=== PATIENT | female | born 1940 | race Caucasian/White ===

== ENCOUNTER → 2016-12-11 | Outpatient (CLI) | payer MEDICARE ==
[~2016-12-11] MED LIST: CYCL5TAB PO; HYDR-2768 PO; LABE100T2 PO; LIPI40TA PO; LOTE20TA PO; NAPR500 PO; PAXI10TA PO
[2016-12-11 13:14] LABS: HDL CHOLESTEROL 53.4 MG/DL (40.0-60.0); INDIRECT BILIRUBIN 0.4 MG/DL (0.0-0.8); TOTAL BILIRUBIN ADULT 0.5 MG/DL (0.2-1.0)
== END ==
LOC: PLAB 09:58
PROVIDERS: ATTEND Family Medicine
DX: E78.2 Mixed hyperlipidemia (principal); Z79.899 Other long term (current) drug therapy
CPT/HCPCS: 36415; 80061; 80076

== ENCOUNTER → 2017-11-09 | Outpatient (CLI) | payer MEDICARE ==
[2017-11-09 13:48] LABS: AUTOMATED NEUTROPHIL # 3.6 TH/MM3 (1.8-7.7); BASOPHIL % 0.4 % (0.0-2.0); EOSINOPHIL # 0.2 TH/MM3 (0-0.4); EOSINOPHIL % 3.5 % (0.0-4.0); HEMATOCRIT 36.8 % (35.0-46.0); HEMOGLOBIN 12.5 GM/DL (11.6-15.3); LYMPH % 28.4 % (9.0-44.0); LYMPHOCYTE # 1.6 TH/MM3 (1.0-4.8); MEAN CELL VOLUME 89.2 FL (80.0-100.0); MEAN CORPUSCULAR HEMOGLOBIN 30.1 PG (27.0-34.0); MEAN CORPUSCULAR HGB CONC 33.8 % (32.0-36.0); MEAN PLATELET VOLUME 8.2 FL (7.0-11.0); MONO % 6.3 % (0.0-8.0); MONOCYTE # 0.4 TH/MM3 (0-0.9); NEUT % 61.4 % (16.0-70.0); PLATELET COUNT 279 TH/MM3 (150-450); RED BLOOD COUNT 4.13 MIL/MM3 (4.00-5.30); RED CELL DISTRIBUTION WIDTH 14.1 % (11.6-17.2); WHITE BLOOD COUNT 5.8 TH/MM3 (4.0-11.0)
[2017-11-09 14:00] LABS: ALBUMIN 4.3 GM/DL (3.4-5.0); AST (GOT) 9 U/L (15-37); BICARBONATE 29.6 MEQ/L (21.0-32.0); BLOOD UREA NITROGEN 17 MG/DL (7-18); CALCIUM 9.2 MG/DL (8.5-10.1); CHLORIDE 103 MEQ/L (98-107); CHOLESTEROL 195 MG/DL (120-200); CREATININE 1.02 MG/DL (0.50-1.00); GLOMERULAR FILTRATION RATE 53 ML/MIN (>89); GLUCOSE,FASTING 98 MG/DL (74-99); SODIUM (NA) 139 MEQ/L (136-145)
[2017-11-09 14:07] LABS: ALKALINE PHOSPHATASE 166 U/L (45-117); ALT (GPT) 20 U/L (10-53); CHOLESTEROL/ HDL RATIO 3.91 RATIO; HDL CHOLESTEROL 49.8 MG/DL (40.0-60.0); LDL CHOLESTEROL 94 MG/DL (0-99); TOTAL BILIRUBIN ADULT 0.3 MG/DL (0.2-1.0); TOTAL PROTEIN 7.6 GM/DL (6.4-8.2); TRIGLYCERIDES 256 MG/DL (42-150)
== END ==
LOC: PLAB 09:27
PROVIDERS: ATTEND Family Medicine
DX: E78.2 Mixed hyperlipidemia (principal); I10 Essential (primary) hypertension; Z79.899 Other long term (current) drug therapy
CPT/HCPCS: 36415; 80053; 80061; 85025

== ENCOUNTER 2018-05-24 11:41 | Inpatient (IN) ==
[2018-05-24] MEDS ORDERED: Sod Chloride 0.9% Inj 1,000 ML IV.SIG ONE (12:02)
[2018-05-24 12:33] LABS: Baso % (Auto) 0.2 % (0.0-2.0); Eos % (Auto) 0.2 % (0.0-4.0); Hemoglobin 12.2 gm/dL (11.6-15.3); Lymph # (Auto) 0.7 th/mm3 (1.0-4.8); Lymph % (Auto) 6.9 % (9.0-44.0); Mean Corpuscular Hemoglobin 30.8 pg (27.0-34.0); Mean Corpuscular Volume 90.7 fL (80.0-100.0); Mean Platelet Volume 8.1 fL (7.0-11.0); Mono # (Auto) 0.8 th/mm3 (0.0-0.9); Mono % (Auto) 8.2 % (0.0-8.0); Neut # (Auto) 8.2 th/mm3 (1.8-7.7); Neut % (Auto) 84.5 % (16.0-70.0); Platelet Count 208 th/mm3 (150-450); Red Blood Count 3.97 mil/mm3 (4.00-5.30); Red Cell Distribution Width 13.3 % (11.6-17.2); White Blood Count 9.7 th/mm3 (4.0-11.0)
[2018-05-24 12:42] LABS: Bilirubin,Urine Negative (Negative); Chloride 97 meq/L (98-107); Color,Urine Yellow (Yellw/Straw); Glucose,Urine (UA) Negative (Negative); Ictotest,Urine Negative (Negative); Leukocyte Esterase,Urine Trace (Negative); Nitrite,Urine Negative (Negative); Potassium 3.2 meq/L (3.5-5.1); Sodium 133 meq/L (136-145)
--- NOTE | 2018-05-24 12:42 | XR ---
EXAM DATE: 05/24/2018 12:29 PM EDT AGE/SEX: 77 years / Female INDICATIONS: Headache, fever, back pain. CLINICAL DATA: This is the patient's initial encounter. Patient reports that signs and symptoms have been present for 2 days and indicates a pain score of 3/10. MEDICAL/SURGICAL HISTORY: None. None. COMPARISON: No prior exams available for comparison. FINDINGS: Cardiomegaly with moderate peribronchial thickening. Minimal parental changes right base. No consolid ation. No pleural effusion. The portion of the bony skeleton visualized is unremarkable. CONCLUSION: Cardiomegaly without failure Peribronchial thickening with minimal parenchymal changes right base Electronically signed by: Guicho Tracey MD 05/24/2018 12:41 PM EDT
[2018-05-24 12:43] LABS: Clarity,Urine Hazy (Clear)
[2018-05-24 12:46] LABS: Albumin 3.2 g/dL (3.4-5.0); Anion Gap 12 meq/L (5-15); Calcium 8.5 mg/dL (8.5-10.1); Carbon Dioxide 24.5 meq/L (21.0-32.0); Glucose,Random 119 mg/dL (74-106); Lipase 87 U/L (73-393); RBC,Urine 0-3 /hpf (0-3); Squamous Epithelial Cell,Urine 0-5 /hpf (0-5); WBC,Urine 0-5 /hpf (0-5)
[2018-05-24 12:47] LABS: Blood Urea Nitrogen 14 mg/dL (7-18); Prothrombin Time 10.1 sec (9.8-11.6)
[2018-05-24 12:49] LABS: Alanine Aminotransferase 24 U/L (10-53); Aspartate Aminotransferase 17 U/L (15-37); Glomerular Filtration Rate 48 mL/min (>89)
[2018-05-24 12:51] LABS: Total Protein 7.3 g/dL (6.4-8.2)
[2018-05-24 12:52] LABS: Alkaline Phosphatase 110 U/L (45-117)
[2018-05-24] MEDS ORDERED: Ibuprofen 600 MG Tablet PO STA (13:16)
--- NOTE | 2018-05-24 13:52 | CT ---
EXAM DATE: 05/24/2018 1:41 PM EDT AGE/SEX: 77 years / Female INDICATIONS: Headache and dizziness. CLINICAL DATA: This is the patient's initial encounter. Patient reports that signs and symptoms have been present for 1 day and indicates a pain score of 0/10. MEDICAL/SURGICAL HISTORY: Hypertension. Hypercholesterolemia. Hysterectomy. RADIATION DOSE: 57.00 CTDI (mGy) COMPARISON: No prior exams available for comparison. TECHNIQUE: CT of the head without contrast. Using automated exposure control and adjustment of the mA and/or kV according to patient size, radiation dose was kept as low as reasonably achievable to ob tain optimal diagnostic quality images. DICOM format image data is available electronically for revi ew and comparison. FINDINGS: Cerebrum: The ventricles are normal for age. No evidence of midline shift, mass lesion, hemorrhage or acute infarction. No extraaxial fluid collections are seen. Posterior Fossa: The cerebellum and brainstem are intact. The 4th ventricle is midline. The cerebe llopontine angle is unremarkable. Extracranial: The visualized portion of the orbits is intact. Skull: The calvaria is intact. No evidence of skull fracture. CONCLUSION: 1. Negative for acute process. . Electronically signed by: Guicho Tracey MD 05/24/2018 1:50 PM EDT
--- NOTE | 2018-05-24 14:05 | CT ---
EXAM DATE: 05/24/2018 1:41 PM EDT AGE/SEX: 77 years / Female INDICATIONS: Slight cough, headache, and fever. CLINICAL DATA: This is the patient's initial encounter. Patient reports that signs and symptoms have been present for 1 day and indicates a pain score of 0/10. MEDICAL/SURGICAL HISTORY: Hypertension. Hypercholesterolemia. Hysterectomy. RADIATION DOSE: 20.18 CTDI (mGy) COMPARISON: No prior exams available for comparison. TECHNIQUE: Multiple contiguous axial images were obtained through the chest without contrast. Image s were obtained in suspended respiration using multiple row detector helical technique. Using automa tabitha exposure control and adjustment of the mA and/or kV according to patient size, radiation dose was kept as low as reasonably achievable to obtain optimal diagnostic quality images. DICOM format imag e data is available electronically for review and comparison. FINDINGS: Lungs: Patchy subsegmental airspace disease is present throughout both lungs. Airspace disease is pr edominantly peribronchial in location. Pleural-based areas of consolidation are developing in the bas es especially on the right. Mediastinum: Mildly enlarged mediastinal lymph nodes ranging in size up to 1.1 x 1.8 cm in size are noted. Heart is normal in size. Pleurae: Trace pleural fluid and mild pleural thickening is evident. Axillae: Unremarkable. Bony Structures: Unremarkable. Miscellaneous: A 9 mm hypodensity is identified in the right hepatic lobe along the dome of the diap hragm. CONCLUSION: 1. Bilateral subsegmental airspace disease and basilar consolidation most characteristic of an infla mmatory process. 2. Mildly prominent mediastinal lymph nodes. 3. 9 mm hypodensity within the right hepatic lobe most characteristic of a cyst. Electronically signed by: Jeffrey Mccain MD 05/24/2018 2:04 PM EDT
[2018-05-24] MEDS ORDERED: Azithromycin Inj 500 MG in Sodium Chlor 0.9% Inj 250 ML IV.SIG ONE (14:14)
--- NOTE | 2018-05-24 14:29 | ED ---
HPI General Chief complaint: Fever Stated complaint: back pain/PIPER/fever History of Present Illness HPI narrative: 77 female here for evaluation of feverHis history of hypertension denies weakness. Fever started 2 days ago, T-max 102.9, went down with Tylenol, she has no cough, no UTI-like symptoms, and no she has or night sweats, no rashes. She reports one 2 episodes of severe headache that went away on its own. 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 Denies any trauma, no nausea or vomiting. Related Data Home Medications Medication Instructions Recorded Confirmed acetaminophen 1 tab PO BID 04/03/18 05/24/18 atorvastatin 40 mg PO DAILY 04/03/18 05/24/18 benazepril 20 mg PO BID 04/03/18 05/24/18 hydrochlorothiazide 25 mg PO DAILY 04/03/18 05/24/18 ibuprofen 800 mg PO DAILY 04/03/18 05/24/18 labetalol 100 mg PO BID 04/03/18 05/24/18 paroxetine HCl 10 mg PO DAILY 04/03/18 05/24/18 Allergies Allergy/AdvReac Type Severity Reaction Status Date / Time Sulfa (Sulfonamide Allergy Severe HIVES Verified 05/24/18 13:16 Antibiotics) SULFIDES Allergy Severe HIVES Uncoded 05/24/18 13:16 Review of Systems ROS: all other systems reviewed are negative [facility] Medical History Medical History H/O: hysterectomy (Acute) High cholesterol (Acute) Hypertension (Acute) Macular degeneration (Acute) Post-nasal drip (Acute) Sciatica (Acute) Family History Family History Other CHF (congestive heart failure) Diabetes Social History Social History Substance History: No History of Abuse Second Hand Smoke Exposure: No Smoking Status: Former smoker Tobacco Type: Cigarettes How Often Do You Have a Drink Containing Alcohol: Never Recent Travel in [place] within the Last 8 Weeks: No Recent Out of Country Travel within the Last 8 Weeks: No Immunization History Tetanus Immunization: <5 Years Hx Influenza Vaccine This Season: Yes Exam Narrative Exam Narrative: GENERAL: Alert oriented 3 no acute distress. SKIN: Focused skin assessment warm/dry. HEAD: Atraumatic. Normocephalic. EYES: Pupils equal and round. No scleral icterus. No injection or drainage. ENT: No nasal bleeding or discharge. Mucous membranes pink and moist. NECK: Trachea midline. No JVD. CARDIOVASCULAR: Regular rate and rhythm. No murmur appreciated. RESPIRATORY: No accessory muscle use. Clear to auscultation. Breath sounds equal bilaterally. GASTROINTESTINAL: Abdomen soft, non-tender, nondistended. Hepatic and splenic margins not palpable. MUSCULOSKELETAL: No obvious deformities. No clubbing. No cyanosis. No edema. NEUROLOGICAL: Awake and alert. No obvious cranial nerve deficits. Motor grossly within normal limits. Normal speech. PSYCHIATRIC: Appropriate mood and affect; insight and judgment normal. Course Initial Documented Vital Signs Temperature 102.8 F H 05/24/18 11:44 Pulse Rate 102 H 05/24/18 11:44 Respiratory Rate 18 05/24/18 11:44 Blood Pressure 150/78 H 05/24/18 11:44 Pulse Oximetry 97 05/24/18 11:44 Last Documented Vital Signs Temperature 97.7 F 05/25/18 11:17 Pulse Rate 74 05/25/18 11:17 Respiratory Rate 20 05/25/18 11:17 Blood Pressure 165/69 H 05/25/18 11:17 Pulse Oximetry 93 L 05/25/18 11:17 Medical Decision Making [facility] Narrative Medical decision making narrative: 77 female with a history of hypertension here for evaluation of fever, vitals reviewed remarkable for elevated temperature, tachycardia which is concerning for early sepsis/SIRS, patient labs were drawn, blood cultures, lactic acid is 1.2, white blood cells are unremarkable. CAT scan shows right lower lobe consolidation/infiltrate which could be the source of the fever. Patient has hypoxia year and we had to put her on 2 L nasal cannula. Patient would benefit from admission for pneumonia and hypoxia, started her on Rocephin/azithromycin and I spoke with Dr. Maza who accepted the patient and gave his recommendations. Medical Screen Exam Complete: Yes Emergency Medical Condition: Yes Lab Data Result diagrams: 05/25/18 05:22 05/25/18 05:22 Lab Results 05/24/18 05/24/18 05/24/18 Range/Units 12:20 12:20 12:20 CBC w Diff Auto diff final WBC 9.7 (4.0-11.0) th/mm3 RBC 3.97 L (4.00-5.30) mil/mm3 Hgb 12.2 (11.6-15.3) gm/dL Hct 36.0 (35.0-46.0) % MCV 90.7 (80.0-100.0) fL MCH 30.8 (27.0-34.0) pg MCHC 34.0 (32.0-36.0) % RDW 13.3 (11.6-17.2) % Plt Count 208 (150-450) th/mm3 MPV 8.1 (7.0-11.0) fL Neut % (Auto) 84.5 H (16.0-70.0) % Lymph % (Auto) 6.9 L (9.0-44.0) % [place] % (Auto) 8.2 H (0.0-8.0) % Eos % (Auto) 0.2 (0.0-4.0) % Baso % (Auto) 0.2 (0.0-2.0) % Neut # (Auto) 8.2 H (1.8-7.7) th/mm3 Lymph # (Auto) 0.7 L (1.0-4.8) th/mm3 [place] # (Auto) 0.8 (0.0-0.9) th/mm3 Eos # (Auto) 0.0 (0.0-0.4) th/mm3 Baso # (Auto) 0.0 (0.0-0.2) th/mm3 WBC Differential . Differential Comment . PT 10.1 (9.8-11.6) sec INR 1.0 Ratio Sodium 133 L (136-145) meq/L Potassium 3.2 L (3.5-5.1) meq/L Chloride 97 L (98-107) meq/L Carbon Dioxide 24.5 (21.0-32.0) meq/L Anion Gap 12 (5-15) meq/L BUN 14 (7-18) mg/dL Creatinine 1.10 H (0.50-1.00) mg/dL Estimated GFR 48 L (>89) mL/min Random Glucose 119 H (74-106) mg/dL Lactic Acid (0.4-2.0) mmol/L Calcium 8.5 (8.5-10.1) mg/dL Total Bilirubin 0.4 (0.2-1.0) mg/dL AST 17 (15-37) U/L ALT 24 (10-53) U/L Alkaline Phosphatase 110 (45-117) U/L Troponin I Less than 0.02 L (0.02-0.05) ng/mL Total Protein 7.3 (6.4-8.2) g/dL Albumin 3.2 L (3.4-5.0) g/dL Lipase 87 (73-393) U/L Urine Color (Yellw/Straw) Urine Clarity (Clear) Urine pH (5.0-8.5) Ur Specific [place] (1.002-1.035) Urine Protein (Neg-Trace) mg/dL Urine Glucose (UA) (Negative) mg/dL Urine Ketones (Negative) mg/dL Urine Occult Blood (Negative) Urine Nitrate (Negative) Urine Bilirubin (Negative) Urine Ictotest (Negative) Urine Urobilinogen (Less than 2) mg/dL Ur Leukocyte Esterase (Negative) Urine RBC (0-3) /hpf Urine WBC (0-5) /hpf Ur Squamous Epith Cells (0-5) /hpf Micro UA Comment Ur Microscopic Review Urine Culture Comments 05/24/18 05/24/18 05/25/18 Range/Units 12:20 12:20 05:22 CBC w Diff Auto diff final WBC 9.8 (4.0-11.0) th/mm3 RBC 3.56 L (4.00-5.30) mil/mm3 Hgb 10.9 L (11.6-15.3) gm/dL Hct 32.5 L (35.0-46.0) % MCV 91.3 (80.0-100.0) fL MCH 30.5 (27.0-34.0) pg MCHC 33.4 (32.0-36.0) % RDW 13.9 (11.6-17.2) % Plt Count 213 (150-450) th/mm3 MPV 8.5 (7.0-11.0) fL Neut % (Auto) 78.9 H (16.0-70.0) % Lymph % (Auto) 11.1 (9.0-44.0) % [place] % (Auto) 9.7 H (0.0-8.0) % Eos % (Auto) 0.2 (0.0-4.0) % Baso % (Auto) 0.1 (0.0-2.0) % Neut # (Auto) 7.7 (1.8-7.7) th/mm3 Lymph # (Auto) 1.1 (1.0-4.8) th/mm3 [place] # (Auto) 1.0 H (0.0-0.9) th/mm3 Eos # (Auto) 0.0 (0.0-0.4) th/mm3 Baso # (Auto) 0.0 (0.0-0.2) th/mm3 WBC Differential . Differential Comment . PT (9.8-11.6) sec INR Ratio Sodium (136-145) meq/L Potassium (3.5-5.1) meq/L Chloride (98-107) meq/L Carbon Dioxide (21.0-32.0) meq/L Anion Gap (5-15) meq/L BUN (7-18) mg/dL Creatinine (0.50-1.00) mg/dL Estimated GFR (>89) mL/min Random Glucose (74-106) mg/dL Lactic Acid 1.2 (0.4-2.0) mmol/L Calcium (8.5-10.1) mg/dL Total Bilirubin (0.2-1.0) mg/dL AST (15-37) U/L ALT (10-53) U/L Alkaline Phosphatase (45-117) U/L Troponin I (0.02-0.05) ng/mL Total Protein (6.4-8.2) g/dL Albumin (3.4-5.0) g/dL Lipase (73-393) U/L Urine Color Yellow (Yellw/Straw) Urine Clarity Hazy H (Clear) Urine pH 6.0 (5.0-8.5) Ur Specific [place] 1.020 (1.002-1.035) Urine Protein 100 H (Neg-Trace) mg/dL Urine Glucose (UA) Negative (Negative) mg/dL Urine Ketones Trace H (Negative) mg/dL Urine Occult Blood Small H (Negative) Urine Nitrate Negative (Negative) Urine Bilirubin Negative (Negative) Urine Ictotest Negative (Negative) Urine Urobilinogen 1.0 (Less than 2) mg/dL Ur Leukocyte Esterase Trace H (Negative) Urine RBC 0-3 (0-3) /hpf Urine WBC 0-5 (0-5) /hpf Ur Squamous Epith Cells 0-5 (0-5) /hpf Micro UA Comment Culture not ind Ur Microscopic Review Microscopic reviewed Urine Culture Comments Culture not ind 05/25/18 Range/Units 05:22 CBC w Diff WBC (4.0-11.0) th/mm3 RBC (4.00-5.30) mil/mm3 Hgb (11.6-15.3) gm/dL Hct (35.0-46.0) % MCV (80.0-100.0) fL MCH (27.0-34.0) pg MCHC (32.0-36.0) % RDW (11.6-17.2) % Plt Count (150-450) th/mm3 MPV (7.0-11.0) fL Neut % (Auto) (16.0-70.0) % Lymph % (Auto) (9.0-44.0) % [place] % (Auto) (0.0-8.0) % Eos % (Auto) (0.0-4.0) % Baso % (Auto) (0.0-2.0) % Neut # (Auto) (1.8-7.7) th/mm3 Lymph # (Auto) (1.0-4.8) th/mm3 [place] # (Auto) (0.0-0.9) th/mm3 Eos # (Auto) (0.0-0.4) th/mm3 Baso # (Auto) (0.0-0.2) th/mm3 WBC Differential Differential Comment PT (9.8-11.6) sec INR Ratio Sodium 139 (136-145) meq/L Potassium 3.6 (3.5-5.1) meq/L Chloride 106 D (98-107) meq/L Carbon Dioxide 23.2 (21.0-32.0) meq/L Anion Gap 10 (5-15) meq/L BUN 14 (7-18) mg/dL Creatinine 0.88 (0.50-1.00) mg/dL Estimated GFR 63 L (>89) mL/min Random Glucose 106 (74-106) mg/dL Lactic Acid (0.4-2.0) mmol/L Calcium 8.4 L (8.5-10.1) mg/dL Total Bilirubin 0.3 (0.2-1.0) mg/dL AST 13 L (15-37) U/L ALT 19 (10-53) U/L Alkaline Phosphatase 97 (45-117) U/L Troponin I (0.02-0.05) ng/mL Total Protein 6.4 D (6.4-8.2) g/dL Albumin 2.7 L (3.4-5.0) g/dL Lipase (73-393) U/L Urine Color (Yellw/Straw) Urine Clarity (Clear) Urine pH (5.0-8.5) Ur Specific [place] (1.002-1.035) Urine Protein (Neg-Trace) mg/dL Urine Glucose (UA) (Negative) mg/dL Urine Ketones (Negative) mg/dL Urine Occult Blood (Negative) Urine Nitrate (Negative) Urine Bilirubin (Negative) Urine Ictotest (Negative) Urine Urobilinogen (Less than 2) mg/dL Ur Leukocyte Esterase (Negative) Urine RBC (0-3) /hpf Urine WBC (0-5) /hpf Ur Squamous Epith Cells (0-5) /hpf Micro UA Comment Ur Microscopic Review Urine Culture Comments Imaging Data Radiologist's impression: Chest X-Ray 05/24/18 12:02 CONCLUSION: Cardiomegaly without failure Peribronchial thickening with minimal parenchymal changes right base Chest CT 05/24/18 13:16 CONCLUSION: 1. Bilateral subsegmental airspace disease and basilar consolidation most characteristic of an inflammatory process. 2. Mildly prominent mediastinal lymph nodes. 3. 9 mm hypodensity within the right hepatic lobe most characteristic of a cyst. Head CT 05/24/18 13:22 CONCLUSION: 1. Negative for acute process. . Discharge Plan Discharge Disposition Patient Disposition: 30 Still Patient Discharge Condition Condition: Stable Discharge Details Diagnosis: Community acquired pneumonia Physicians Team ED Provider: Jorge Hensley Primary Care Provider: Primary Care Estella Ariza Attending Provider: Go Hidalgo Status ED Status: Left Department Discharge Information Discharge Date/Time: 05/24/18 14:55
--- NOTE | 2018-05-24 15:08 | P.HPIM ---
History of Present Illness Primary Care Physician: No Primary Care Physician Chief Complaint: Headache History of Present Illness: The patient is a 77-year-old female with a past medical history of hypertension who is presenting to the hospital with headache and sweats and chills. The patient states she has been having fevers at home as well as alternating between sweats and chills. She has had severe symptoms over the past 3 days which have essentially rendered her bed bound. She has been coughing and when she coughs she experiences chest pain at times. She denies any mucus production. She says she had minor diarrhea on one of the days but that has resolved. She denies any shortness of breath. She does endorse chronic postnasal drip. She has been endorsing dizziness lately. She has a generalized sensation of weakness. She has been sweating a lot. Her step- daughter was at the bedside. Inpatient Certification: I certify that the inpatient services were ordered in accordance with Medicare regulations governing the order. This includes certification that hospital inpatient services are reasonable and necessary and in the case of services not specified as inpatient-only under 42 CFR 419.22(n), that they are appropriately provided as inpatient services in accordance to with the 2-midnight benchmark under 43 CFR 412.3(e) Estimated Total Length of Stay (Days): 2 Plans for Post Hospital Care: Not yet determined Review of Systems All other systems reviewed negative except as stated in HPI [facility] - History History Provided By: Patient - Medical History Medical History: Medical History (Last Updated 05/24/18 @ 15:06 by Go Hidalgo DO) H/O: hysterectomy High cholesterol Hypertension Macular degeneration Post-nasal drip Sciatica - Surgical History Surgical History: Surgical History (Last Updated 05/24/18 @ 15:07 by Go Hidalgo DO) Hx of cholecystectomy - Family History Family History: Family History (Last Updated 05/24/18 @ 15:07 by Go Hidalgo DO) Other CHF (congestive heart failure) Diabetes - Tobacco History Second Hand Smoke Exposure: No Smoking Status: Former smoker - Alcohol History How Often Do You Have a Drink Containing Alcohol: Never - Substance Use History Substance History: No History of Abuse - Travel History Recent Travel in the [place] Within the Last 8 Weeks: No Recent Travel Out of the Country Within the Last 8 Weeks: No - Immunization History Tetanus Immunization: <5 Years Hx Influenza Vaccine This Season: Yes Medications and Allergies Active Medications: Active Medications Acetaminophen (Tylenol) 650 mg PO Q4H PRN PRN Reason: Temp > 100.4 Atorvastatin Calcium (Lipitor) 40 mg PO HS DAIMON Azithromycin 500 mg/ Sodium (Chloride) 250 mls @ 250 mls/hr IV.SIG ONCE ONE Stop: 05/24/18 15:13 Azithromycin 500 mg/ Sodium (Chloride) 250 mls @ 250 mls/hr IV.SIG Q24H DAMION Ceftriaxone Sodium 1,000 mg/ (Sodium Chloride) 100 mls @ 200 mls/hr IV.SIG Q24H DAMION Sodium Chloride (Ns Inj) 1,000 mls @ 100 mls/hr IV.CONT .Q10H DAMION Labetalol HCl (Trandate) 100 mg PO BID DAMION Paroxetine HCl (Paxil) 10 mg PO HS DAMION Potassium Chloride (K-Dur) 40 meq PO Q4H DAMION Stop: 05/24/18 19:01 Allergies Allergy/AdvReac Type Severity Reaction Status Date / Time Sulfa (Sulfonamide Allergy Severe HIVES Verified 05/24/18 13:16 Antibiotics) SULFIDES Allergy Severe HIVES Uncoded 05/24/18 13:16 Home Medications Medication Instructions Recorded Confirmed Type acetaminophen 1 tab PO BID 04/03/18 05/24/18 History atorvastatin 40 mg PO DAILY 04/03/18 05/24/18 History benazepril 20 mg PO BID 04/03/18 05/24/18 History hydrochlorothiazide 25 mg PO DAILY 04/03/18 05/24/18 History ibuprofen 800 mg PO DAILY 04/03/18 05/24/18 History labetalol 100 mg PO BID 04/03/18 05/24/18 History paroxetine HCl 10 mg PO DAILY 04/03/18 05/24/18 History Exam Vital signs: Vital Signs 05/24/18 11:44 05/24/18 12:28 Temperature 102.8 F H Pulse Rate 102 H 99 H Respiratory Rate 18 20 Blood Pressure 150/78 H 147/86 H Pulse Oximetry 97 92 L Intake & Output 05/23/18 05/24/18 05/24/18 18:59 06:59 18:59 Intake Total 1000 / 1000 Balance 1000 / 1000 Weight 77 kg Intake: IV 1000 / 1000 NS Inj 1,000 ML @ Wide Open IV. 1000 / 1000 SIG BOLUS ONE Rx#:[id number] Narrative: GENERAL: No acute distress. SKIN: Focused skin assessment warm/dry. HEAD: Atraumatic. Normocephalic. EYES: Pupils equal and round. No scleral icterus. No injection or drainage. ENT: No nasal bleeding or discharge. Mucous membranes pink and moist. NECK: Trachea midline. No JVD. CARDIOVASCULAR: Regular rate and rhythm. No murmur appreciated. RESPIRATORY: No accessory muscle use. Clear to auscultation. Breath sounds equal bilaterally. GASTROINTESTINAL: Abdomen soft, non-tender, nondistended. Hepatic and splenic margins not palpable. MUSCULOSKELETAL: No obvious deformities. No clubbing. No cyanosis. No edema. NEUROLOGICAL: Awake and alert. No obvious cranial nerve deficits. Motor grossly within normal limits. Normal speech. PSYCHIATRIC: Appropriate mood and affect; insight and judgment normal. Results - Labs CBC & Chem 7: 05/24/18 12:20 05/24/18 12:20 Labs: Short CBC 05/24/18 Range/Units 12:20 WBC 9.7 (4.0-11.0) th/mm3 Hgb 12.2 (11.6-15.3) gm/dL Hct 36.0 (35.0-46.0) % Plt Count 208 (150-450) th/mm3 BMP 05/24/18 12:20 Sodium 133 L Potassium 3.2 L Chloride 97 L Carbon Dioxide 24.5 BUN 14 Creatinine 1.10 H Calcium 8.5 Cardiac Enzymes 05/24/18 Range/Units 12:20 Troponin I Less than 0.02 L (0.02-0.05) ng/mL Liver Function 05/24/18 Range/Units 12:20 Total Bilirubin 0.4 (0.2-1.0) mg/dL AST 17 (15-37) U/L ALT 24 (10-53) U/L Alkaline Phosphatase 110 (45-117) U/L Albumin 3.2 L (3.4-5.0) g/dL Urine 05/24/18 Range/Units 12:20 Urine Color Yellow (Yellw/Straw) Urine Clarity Hazy H (Clear) Urine pH 6.0 (5.0-8.5) Ur Specific [place] 1.020 (1.002-1.035) Urine Protein 100 H (Neg-Trace) mg/dL Urine Glucose (UA) Negative (Negative) mg/dL - Imaging Impressions Chest X-Ray 05/24/18 12:02 CONCLUSION: Cardiomegaly without failure Peribronchial thickening with minimal parenchymal changes right base Chest CT 05/24/18 13:16 CONCLUSION: 1. Bilateral subsegmental airspace disease and basilar consolidation most characteristic of an inflammatory process. 2. Mildly prominent mediastinal lymph nodes. 3. 9 mm hypodensity within the right hepatic lobe most characteristic of a cyst. Head CT 05/24/18 13:22 CONCLUSION: 1. Negative for acute process. . Caprini VTE Risk Assessment Caprini VTE Risk Assessment: Moderate/High Risk (score >= 2) Caprini Risk Assessment Model: Point Value = 1 Point Value = 2 Point Value = 3 Point Value = 5 Age 41-60 Minor surgery BMI > 25 kg/m2 Swollen legs Varicose veins or History of unexplained or recurrent spontaneous Oral contraceptives or hormone replacement Sepsis (< 1 month) Serious lung disease, including pneumonia (< 1 month) Abnormal pulmonary function Acute myocardial infarction Congestive heart failure (< 1 month) History of inflammatory bowel disease Medical patient at bed rest Age 61-74 Arthroscopic surgery Major open surgery (> 45 min) Laparoscopic surgery (> 45 min) Malignancy Confined to bed (> 72 hours) Immobilizing plaster cast Central venous access Age >= 75 History of VTE Family history of VTE Factor V Leiden Prothrombin [id number] Lupus anticoagulant Anticardiolipin antibodies Elevated serum homocysteine Heparin-induced thrombocytopenia Other congenital or acquired thrombophilia Stroke (< 1 month) Elective arthroplasty Hip, pelvis, or leg fracture Acute spinal cord injury (< 1 month) Prophylaxis Regimen: Total Risk Factor Score Risk Level Prophylaxis Regimen 0-1 Low Early ambulation 2 Moderate Order ONE of the following: *Sequential Compression Device (SCD) *Heparin 5000 units SQ BID 3-4 Higher Order ONE of the following medications: *Heparin 5000 units SQ TID *Enoxaparin/Lovenox 40 mg SQ daily (WT < 150 kg, CrCl > 30 mL/min) *Enoxaparin/Lovenox 30 mg SQ daily (WT < 150 kg, CrCl > 10-29 mL/min) *Enoxaparin/Lovenox 30 mg SQ BID (WT < 150 kg, CrCl > 30 mL/min) AND/OR *Sequential Compression Device (SCD) 5 or more Highest Order ONE of the following medications: *Heparin 5000 units SQ TID (Preferred with Epidurals) *Enoxaparin/Lovenox 40 mg SQ daily (WT < 150 kg, CrCl > 30 mL/min) *Enoxaparin/Lovenox 30 mg SQ daily (WT < 150 kg, CrCl > 10-29 mL/min) *Enoxaparin/Lovenox 30 mg SQ BID (WT < 150 kg, CrCl > 30 mL/min) AND *Sequential Compression Device (SCD) Assessment and Plan - Plan Community-acquired pneumonia/ Sepsis The pt presents with fevers and chills. She had an elevated HR. CT of the chest showed: Bilateral subsegmental airspace disease and basilar consolidation most characteristic of an inflammatory process. -IV ceftriaxone and azithromycin. -follow blood cultures. -IVFs. -oxygen and nebs as needed. -incentive spirometry. -physical therapy. Headache CT head unremarkable. Likely s/t above process. -ibuprofen as needed. Renal insufficiency May be s/t home meds. -hold HCTZ and ACEi. -IVFs. -avoid nephrotoxins. Hypokalemia Likely s/t decreased PO intake. -replete and monitor. HTN On labetalol, HCTZ and ACEi as an outpt. -hold HCTZ and ACEi. -continue labetalol. -clonidine as needed. PPx: SCDs
[2018-05-24] MEDS: Sod Chloride 0.9% Inj 1,000 ML IV.CONT SCH (15:23)
[2018-05-24] MEDS ORDERED: Ibuprofen 600 MG Tablet PO PRN (19:00)
[2018-05-24] MEDS: Labetalol 100 MG Tablet PO SCH (21:52)
[2018-05-24] MEDS: Acetaminophen 325 MG Tablet PO PRN (21:52)
[2018-05-25] MEDS: Sod Chloride 0.9% Inj 1,000 ML IV.CONT SCH (04:42)
[2018-05-25 06:37] LABS: Baso % (Auto) 0.1 % (0.0-2.0); Eos % (Auto) 0.2 % (0.0-4.0); Hematocrit 32.5 % (35.0-46.0); Hemoglobin 10.9 gm/dL (11.6-15.3); Lymph # (Auto) 1.1 th/mm3 (1.0-4.8); Lymph % (Auto) 11.1 % (9.0-44.0); Mean Corpuscular HGB Conc 33.4 % (32.0-36.0); Mean Corpuscular Hemoglobin 30.5 pg (27.0-34.0); Mean Corpuscular Volume 91.3 fL (80.0-100.0); Mean Platelet Volume 8.5 fL (7.0-11.0); Mono % (Auto) 9.7 % (0.0-8.0); Neut # (Auto) 7.7 th/mm3 (1.8-7.7); Neut % (Auto) 78.9 % (16.0-70.0); Platelet Count 213 th/mm3 (150-450); Red Blood Count 3.56 mil/mm3 (4.00-5.30); Red Cell Distribution Width 13.9 % (11.6-17.2); White Blood Count 9.8 th/mm3 (4.0-11.0)
[2018-05-25 07:12] LABS: Alanine Aminotransferase 19 U/L (10-53); Albumin 2.7 g/dL (3.4-5.0); Alkaline Phosphatase 97 U/L (45-117); Anion Gap 10 meq/L (5-15); Aspartate Aminotransferase 13 U/L (15-37); Blood Urea Nitrogen 14 mg/dL (7-18); Calcium 8.4 mg/dL (8.5-10.1); Carbon Dioxide 23.2 meq/L (21.0-32.0); Chloride 106 meq/L (98-107); Glomerular Filtration Rate 63 mL/min (>89); Glucose,Random 106 mg/dL (74-106); Potassium 3.6 meq/L (3.5-5.1); Sodium 139 meq/L (136-145); Total Protein 6.4 g/dL (6.4-8.2)
[2018-05-25] MEDS: Labetalol 100 MG Tablet PO SCH ×2 (08:41→21:44)
[2018-05-25] MEDS: Acetaminophen 325 MG Tablet PO PRN (08:41)
--- NOTE | 2018-05-25 09:24 | P.PNIM ---
Subjective Interval history: The patient asked if she could be on her home regimen of ibuprofen and Tylenol. She said sitting in the chair was not good for her chronic back pain and neither was laying in the bed. She said she worked with physical therapy. She says her headache is improved. Family at the bedside. Physical Exam Vital signs: Vital Signs 05/24/18 11:44 05/24/18 12:28 05/24/18 12:40 Temperature 102.8 F H Pulse Rate 102 H 99 H Respiratory Rate 18 20 Blood Pressure 150/78 H 147/86 H Pulse Oximetry 97 92 L 90 L 05/24/18 12:45 05/24/18 13:15 05/24/18 15:11 Temperature 100.8 F H 99.5 F Pulse Rate 92 H Respiratory Rate 20 Blood Pressure 147/75 H Pulse Oximetry 95 95 05/24/18 16:00 05/24/18 17:21 05/24/18 19:50 Temperature 99.1 F Pulse Rate 88 Respiratory Rate 18 Blood Pressure 139/86 Pulse Oximetry 95 98 97 05/24/18 20:00 05/24/18 21:39 05/24/18 22:45 Temperature 98.7 F 102.4 F H 101.7 F H Pulse Rate 86 Respiratory Rate 20 Blood Pressure 143/66 H Pulse Oximetry 93 L 05/24/18 23:45 05/25/18 04:00 05/25/18 07:43 Temperature 99.4 F 99.8 F H 100.9 F H Pulse Rate 97 H 102 H Respiratory Rate 20 20 Blood Pressure 145/70 H 163/75 H Pulse Oximetry 95 93 L 05/25/18 07:58 Temperature Pulse Rate Respiratory Rate Blood Pressure Pulse Oximetry 92 L Intake & Output 05/24/18 05/25/18 05/25/18 18:59 06:59 18:59 Intake Total 1830 / 1830 1240 / 1240 Balance 1830 / 1830 1240 / 1240 Weight 77 kg 85.8 kg Intake: IV 1350 / 1350 1000 / 1000 NS Inj 1,000 ML @ 100 mls/hr IV 1000 / 1000 .CONT .Q10H [facility] Rx#:[id number] Azithromycin Inj 500 MG In NS 250 / 250 Inj 250 ML @ 250 mls/hr IV.SIG ONCE ONE Rx#:[id number] NS Inj 1,000 ML @ Wide Open IV. 1000 / 1000 SIG BOLUS ONE Rx#:[id number] Rocephin Inj 2,000 MG In NS Inj 100 / 100 100 ML @ 200 mls/hr IV.SIG ONCE ONE Rx#:[id number] Oral 480 / 480 240 / 240 Other: # Voids 0 5 # Bowel Movements 0 Weight On Admission 77 kg Narrative: GENERAL: No acute distress. SKIN: Focused skin assessment warm/dry. HEAD: Atraumatic. Normocephalic. EYES: Pupils equal and round. No scleral icterus. No injection or drainage. ENT: No nasal bleeding or discharge. Mucous membranes pink and moist. NECK: Trachea midline. No JVD. CARDIOVASCULAR: Regular rate and rhythm. No murmur appreciated. RESPIRATORY: No accessory muscle use. Clear to auscultation. Breath sounds equal bilaterally. GASTROINTESTINAL: Abdomen soft, non-tender, nondistended. Hepatic and splenic margins not palpable. MUSCULOSKELETAL: No obvious deformities. No clubbing. No cyanosis. No edema. NEUROLOGICAL: Awake and alert. No obvious cranial nerve deficits. Motor grossly within normal limits. Normal speech. PSYCHIATRIC: Appropriate mood and affect; insight and judgment normal. Results - Labs CBC & Chem 7: 05/25/18 05:22 05/25/18 05:22 Laboratory Results - last 24 hr 05/24/18 05/24/18 05/24/18 12:20 12:20 12:20 CBC w Diff Auto diff final WBC 9.7 RBC 3.97 L Hgb 12.2 Hct 36.0 MCV 90.7 MCH 30.8 MCHC 34.0 RDW 13.3 Plt Count 208 MPV 8.1 Neut % (Auto) 84.5 H Lymph % (Auto) 6.9 L [place] % (Auto) 8.2 H Eos % (Auto) 0.2 Baso % (Auto) 0.2 Neut # (Auto) 8.2 H Lymph # (Auto) 0.7 L [place] # (Auto) 0.8 Eos # (Auto) 0.0 Baso # (Auto) 0.0 WBC Differential . Differential Comment . PT 10.1 INR 1.0 Sodium 133 L Potassium 3.2 L Chloride 97 L Carbon Dioxide 24.5 Anion Gap 12 BUN 14 Creatinine 1.10 H Estimated GFR 48 L Random Glucose 119 H Lactic Acid Calcium 8.5 Total Bilirubin 0.4 AST 17 ALT 24 Alkaline Phosphatase 110 Troponin I Less than 0.02 L Total Protein 7.3 Albumin 3.2 L Lipase 87 Urine Color Urine Clarity Urine pH Ur Specific [place] Urine Protein Urine Glucose (UA) Urine Ketones Urine Occult Blood Urine Nitrate Urine Bilirubin Urine Ictotest Urine Urobilinogen Ur Leukocyte Esterase Urine RBC Urine WBC Ur Squamous Epith Cells Micro UA Comment Ur Microscopic Review Urine Culture Comments 05/24/18 05/24/18 05/25/18 12:20 12:20 05:22 CBC w Diff Auto diff final WBC 9.8 RBC 3.56 L Hgb 10.9 L Hct 32.5 L MCV 91.3 MCH 30.5 MCHC 33.4 RDW 13.9 Plt Count 213 MPV 8.5 Neut % (Auto) 78.9 H Lymph % (Auto) 11.1 [place] % (Auto) 9.7 H Eos % (Auto) 0.2 Baso % (Auto) 0.1 Neut # (Auto) 7.7 Lymph # (Auto) 1.1 [place] # (Auto) 1.0 H Eos # (Auto) 0.0 Baso # (Auto) 0.0 WBC Differential . Differential Comment . PT INR Sodium Potassium Chloride Carbon Dioxide Anion Gap BUN Creatinine Estimated GFR Random Glucose Lactic Acid 1.2 Calcium Total Bilirubin AST ALT Alkaline Phosphatase Troponin I Total Protein Albumin Lipase Urine Color Yellow Urine Clarity Hazy H Urine pH 6.0 Ur Specific [place] 1.020 Urine Protein 100 H Urine Glucose (UA) Negative Urine Ketones Trace H Urine Occult Blood Small H Urine Nitrate Negative Urine Bilirubin Negative Urine Ictotest Negative Urine Urobilinogen 1.0 Ur Leukocyte Esterase Trace H Urine RBC 0-3 Urine WBC 0-5 Ur Squamous Epith Cells 0-5 Micro UA Comment Culture not ind Ur Microscopic Review Microscopic reviewed Urine Culture Comments Culture not ind 05/25/18 05:22 CBC w Diff WBC RBC Hgb Hct MCV MCH MCHC RDW Plt Count MPV Neut % (Auto) Lymph % (Auto) [place] % (Auto) Eos % (Auto) Baso % (Auto) Neut # (Auto) Lymph # (Auto) [place] # (Auto) Eos # (Auto) Baso # (Auto) WBC Differential Differential Comment PT INR Sodium 139 Potassium 3.6 Chloride 106 D Carbon Dioxide 23.2 Anion Gap 10 BUN 14 Creatinine 0.88 Estimated GFR 63 L Random Glucose 106 Lactic Acid Calcium 8.4 L Total Bilirubin 0.3 AST 13 L ALT 19 Alkaline Phosphatase 97 Troponin I Total Protein 6.4 D Albumin 2.7 L Lipase Urine Color Urine Clarity Urine pH Ur Specific [place] Urine Protein Urine Glucose (UA) Urine Ketones Urine Occult Blood Urine Nitrate Urine Bilirubin Urine Ictotest Urine Urobilinogen Ur Leukocyte Esterase Urine RBC Urine WBC Ur Squamous Epith Cells Micro UA Comment Ur Microscopic Review Urine Culture Comments - Imaging Impressions Chest X-Ray 05/24/18 12:02 CONCLUSION: Cardiomegaly without failure Peribronchial thickening with minimal parenchymal changes right base Chest CT 05/24/18 13:16 CONCLUSION: 1. Bilateral subsegmental airspace disease and basilar consolidation most characteristic of an inflammatory process. 2. Mildly prominent mediastinal lymph nodes. 3. 9 mm hypodensity within the right hepatic lobe most characteristic of a cyst. Head CT 05/24/18 13:22 CONCLUSION: 1. Negative for acute process. . Assessment and Plan - Plan Community-acquired pneumonia/ Sepsis The pt presents with fevers and chills. She had an elevated HR. CT of the chest showed: Bilateral subsegmental airspace disease and basilar consolidation most characteristic of an inflammatory process. -continue IV ceftriaxone and azithromycin. -follow blood cultures. -IVFs. -oxygen and nebs as needed. -incentive spirometry. -physical therapy. Headache CT head unremarkable. Likely s/t above process. -ibuprofen as needed. Renal insufficiency May be s/t home meds. Improved with IVFs. -hold HCTZ. -resume ACEi and monitor. -IVFs. -avoid nephrotoxins. Hypokalemia Likely s/t decreased PO intake. -replete and monitor. HTN On labetalol, HCTZ and ACEi as an outpt. -hold HCTZ and resume ACEi. -continue labetalol. -clonidine as needed. Chronic back pain The pt takes ibuprofen and Tylenol at home. -resume home regimen. -PT. PPx: SCDs
[2018-05-25] MEDS ORDERED: Acetaminophen 500 MG Tablet PO PRN (10:01)
[2018-05-25] MEDS: Lisinopril 20 MG Tablet PO SCH ×2 (10:55→21:44)
[2018-05-25] MEDS ORDERED: Azithromycin Inj 500 MG in Sodium Chlor 0.9% Inj 250 ML IV.SIG SCH (14:00)
[2018-05-26] MEDS: Acetaminophen 325 MG Tablet PO PRN ×2 (00:06→09:46)
[2018-05-26 06:35] LABS: Baso % (Auto) 0.2 % (0.0-2.0); Eos # (Auto) 0.1 th/mm3 (0.0-0.4); Hematocrit 31.6 % (35.0-46.0); Hemoglobin 10.3 gm/dL (11.6-15.3); Lymph # (Auto) 1.2 th/mm3 (1.0-4.8); Lymph % (Auto) 13.2 % (9.0-44.0); Mean Corpuscular HGB Conc 32.5 % (32.0-36.0); Mean Corpuscular Hemoglobin 29.8 pg (27.0-34.0); Mean Corpuscular Volume 91.5 fL (80.0-100.0); Mean Platelet Volume 8.3 fL (7.0-11.0); Mono # (Auto) 0.9 th/mm3 (0.0-0.9); Mono % (Auto) 9.7 % (0.0-8.0); Neut # (Auto) 6.8 th/mm3 (1.8-7.7); Neut % (Auto) 75.9 % (16.0-70.0); Platelet Count 222 th/mm3 (150-450); Red Blood Count 3.46 mil/mm3 (4.00-5.30); Red Cell Distribution Width 13.5 % (11.6-17.2)
[2018-05-26 06:56] LABS: Potassium 3.4 meq/L (3.5-5.1)
[2018-05-26 07:05] LABS: Calcium 8.6 mg/dL (8.5-10.1); Carbon Dioxide 23.6 meq/L (21.0-32.0); Magnesium 1.9 mg/dL (1.5-2.5)
[2018-05-26] MEDS: Labetalol 100 MG Tablet PO SCH ×2 (08:02→22:13)
[2018-05-26] MEDS: Lisinopril 20 MG Tablet PO SCH ×2 (08:02→22:14)
[2018-05-26] MEDS ORDERED: Potassium Chloride 25 MEQ Effervescent Tablet PO ONE (09:13)
--- NOTE | 2018-05-26 11:33 | P.PNIM ---
Subjective Interval history: The patient said that she was feeling a little worse today. She endorses decreased appetite. She wanted to know what the CAT scan results of her head were. No other acute complaints. Physical Exam Vital signs: Vital Signs 05/25/18 15:30 05/25/18 20:00 05/25/18 21:05 Temperature 98 F 97.3 F L Pulse Rate 89 75 Respiratory Rate 20 16 Blood Pressure 160/76 H 158/73 H Pulse Oximetry 93 L 96 96 05/26/18 00:00 05/26/18 08:00 05/26/18 09:50 Temperature 100.0 F H 98.8 F Pulse Rate 85 87 Respiratory Rate 16 20 Blood Pressure 169/78 H 186/86 H 140/68 Pulse Oximetry 95 95 Intake & Output 05/25/18 05/26/18 05/26/18 18:59 06:59 18:59 Intake Total 2310 / 2310 Balance 2310 / 2310 Weight 85.8 kg Intake: IV 1350 / 1350 NS Inj 1,000 ML @ 100 mls/hr IV 1000 / 1000 .CONT .Q10H [facility] Rx#:[id number] Azithromycin Inj 500 MG In NS 250 / 250 Inj 250 ML @ 250 mls/hr IV.SIG Q24H [facility] Rx#:[id number] Rocephin Inj 1,000 MG In NS Inj 100 / 100 100 ML @ 200 mls/hr IV.SIG Q24H [facility] Rx#:[id number] Oral 960 / 960 Other: # Voids 4 1 Date of Last Bowel Movement 05/25/18 05/25/18 # Bowel Movements 2 Narrative: GENERAL: No acute distress. SKIN: Focused skin assessment warm/dry. HEAD: Atraumatic. Normocephalic. EYES: Pupils equal and round. No scleral icterus. No injection or drainage. ENT: No nasal bleeding or discharge. Mucous membranes pink and moist. NECK: Trachea midline. No JVD. CARDIOVASCULAR: Regular rate and rhythm. No murmur appreciated. RESPIRATORY: No accessory muscle use. Clear to auscultation. Breath sounds equal bilaterally. GASTROINTESTINAL: Abdomen soft, non-tender, nondistended. Hepatic and splenic margins not palpable. MUSCULOSKELETAL: No obvious deformities. No clubbing. No cyanosis. No edema. NEUROLOGICAL: Awake and alert. No obvious cranial nerve deficits. Motor grossly within normal limits. Normal speech. PSYCHIATRIC: Appropriate mood and affect; insight and judgment normal. Results - Labs CBC & Chem 7: 05/26/18 05:35 05/26/18 05:35 Laboratory Results - last 24 hr 05/26/18 05/26/18 05:35 05:35 CBC w Diff Auto diff final WBC 9.0 RBC 3.46 L Hgb 10.3 L Hct 31.6 L MCV 91.5 MCH 29.8 MCHC 32.5 RDW 13.5 Plt Count 222 MPV 8.3 Neut % (Auto) 75.9 H Lymph % (Auto) 13.2 [place] % (Auto) 9.7 H Eos % (Auto) 1.0 Baso % (Auto) 0.2 Neut # (Auto) 6.8 Lymph # (Auto) 1.2 [place] # (Auto) 0.9 Eos # (Auto) 0.1 Baso # (Auto) 0.0 WBC Differential . Differential Comment . Sodium 138 Potassium 3.4 L Chloride 106 Carbon Dioxide 23.6 Anion Gap 8 BUN 11 Creatinine 0.76 Estimated GFR 74 L Random Glucose 104 Calcium 8.6 Magnesium 1.9 Microbiology 05/24/18 12:15 Blood - Peripheral Aerobic Blood Culture - Preliminary No growth in 2 days 05/24/18 12:15 Blood - Peripheral Anaerobic Blood Culture - Preliminary No growth in 2 days 05/24/18 12:20 Blood - Peripheral Aerobic Blood Culture - Preliminary No growth in 2 days 05/24/18 12:20 Blood - Peripheral Anaerobic Blood Culture - Preliminary No growth in 2 days Assessment and Plan - Plan Community-acquired pneumonia/ Sepsis The pt presents with fevers and chills. She had an elevated HR. CT of the chest showed: Bilateral subsegmental airspace disease and basilar consolidation most characteristic of an inflammatory process. -continue IV ceftriaxone and azithromycin. -follow blood cultures. NGTD. -IVFs. -oxygen and nebs as needed. -incentive spirometry. -physical therapy. Headache CT head unremarkable. Likely s/t above process. -ibuprofen and Tylenol as needed. Renal insufficiency May be s/t home meds. Improved with IVFs. -hold HCTZ. -resume ACEi and monitor. -avoid nephrotoxins. Hypokalemia Likely s/t decreased PO intake. -replete and monitor. -check mag and phos levels. HTN On labetalol, HCTZ and ACEi as an outpt. -hold HCTZ and resume ACEi. -continue labetalol. -clonidine as needed. Chronic back pain The pt takes ibuprofen and Tylenol at home. -resume home regimen. -PT. PPx: SCDs Discharge Planning: Anticipate d/c home with oral antibiotics in 1-2 days. PT recommends home PT.
[2018-05-26] MEDS: Azithromycin 250 MG Tablet PO SCH (13:27)
[2018-05-27 07:29] LABS: Baso % (Auto) 0.3 % (0.0-2.0); Eos # (Auto) 0.2 th/mm3 (0.0-0.4); Eos % (Auto) 2.9 % (0.0-4.0); Hematocrit 29.6 % (35.0-46.0); Hemoglobin 10.1 gm/dL (11.6-15.3); Lymph # (Auto) 1.2 th/mm3 (1.0-4.8); Lymph % (Auto) 14.1 % (9.0-44.0); Mean Corpuscular HGB Conc 34.2 % (32.0-36.0); Mean Corpuscular Hemoglobin 30.9 pg (27.0-34.0); Mean Corpuscular Volume 90.4 fL (80.0-100.0); Mean Platelet Volume 8.6 fL (7.0-11.0); Mono # (Auto) 0.7 th/mm3 (0.0-0.9); Mono % (Auto) 8.9 % (0.0-8.0); Neut # (Auto) 6.1 th/mm3 (1.8-7.7); Neut % (Auto) 73.8 % (16.0-70.0); Platelet Count 289 th/mm3 (150-450); Red Blood Count 3.27 mil/mm3 (4.00-5.30); Red Cell Distribution Width 13.9 % (11.6-17.2); White Blood Count 8.2 th/mm3 (4.0-11.0)
[2018-05-27 07:32] LABS: Potassium 3.7 meq/L (3.5-5.1)
[2018-05-27 07:38] LABS: Calcium 8.8 mg/dL (8.5-10.1)
[2018-05-27 07:39] LABS: Carbon Dioxide 24.2 meq/L (21.0-32.0)
[2018-05-27 07:42] LABS: Phosphorus 2.8 mg/dL (2.5-4.9)
[2018-05-27] MEDS: Lisinopril 20 MG Tablet PO SCH (08:33)
[2018-05-27] MEDS: Labetalol 100 MG Tablet PO SCH (08:33)
--- NOTE | 2018-05-27 10:38 | P.PNIM ---
Subjective Interval history: Mrs. Graff was afebrile with HTN overnight; SBP 160's-180's overnight. Patient reports that she is doing well overall but has noticed that she has had to catch her breath some. She has some mild cough but denies productive cough. No reported chest pain, abnormal urination, or abnormal bowel movements. 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 Physical Exam Vital signs: Vital Signs 05/26/18 12:00 05/26/18 16:00 05/26/18 20:00 Temperature 98.6 F 98.6 F 98.1 F Pulse Rate 77 77 81 Respiratory Rate 18 18 16 Blood Pressure 158/76 H 162/77 H 166/78 H Pulse Oximetry 96 96 95 05/26/18 20:05 05/27/18 00:00 05/27/18 02:08 Temperature 96.3 F L Pulse Rate 71 Respiratory Rate 16 18 Blood Pressure 169/83 H Pulse Oximetry 96 96 05/27/18 04:44 05/27/18 04:47 05/27/18 07:45 Temperature 97.9 F Pulse Rate 73 Respiratory Rate 18 Blood Pressure 188/86 H 186/84 H Pulse Oximetry 95 93 L 05/27/18 08:00 Temperature 96.9 F L Pulse Rate 80 Respiratory Rate 17 Blood Pressure 186/88 H Pulse Oximetry 93 L Intake & Output 05/26/18 05/27/18 05/27/18 18:59 06:59 18:59 Intake Total 820 / 820 Balance 820 / 820 Intake: IV 100 / 100 Rocephin Inj 1,000 MG In NS Inj 100 / 100 100 ML @ 200 mls/hr IV.SIG Q24H [facility] Rx#:[id number] Oral 720 / 720 Other: # Voids 5 1 Date of Last Bowel Movement 05/25/18 05/25/18 05/25/18 # Bowel Movements 1 Narrative: GENERAL: No acute distress. SKIN: No visible lesion EYES: EOM grossly I ENT: Mucous membranes pink and moist. CARDIOVASCULAR: Regular rate and rhythm; normal perfusion. No murmurs RESPIRATORY: CTAB; normal rate GASTROINTESTINAL: Abdomen soft, non-tender, nondistended MUSCULOSKELETAL: Grossly normal ROM and motor function. NEUROLOGICAL: Awake and alert. No obvious cranial nerve deficits. Grossly normal peripheral motor/sensory function PSYCHIATRIC: Appropriate mood and affect; insight and judgment normal. Results - Labs CBC & Chem 7: 05/27/18 06:42 05/27/18 06:42 Laboratory Results - last 24 hr 05/27/18 05/27/18 06:42 06:42 CBC w Diff Auto diff final WBC 8.2 RBC 3.27 L Hgb 10.1 L Hct 29.6 L MCV 90.4 MCH 30.9 MCHC 34.2 RDW 13.9 Plt Count 289 D MPV 8.6 Neut % (Auto) 73.8 H Lymph % (Auto) 14.1 [place] % (Auto) 8.9 H Eos % (Auto) 2.9 Baso % (Auto) 0.3 Neut # (Auto) 6.1 Lymph # (Auto) 1.2 [place] # (Auto) 0.7 Eos # (Auto) 0.2 Baso # (Auto) 0.0 WBC Differential . Differential Comment . Sodium 141 Potassium 3.7 Chloride 107 Carbon Dioxide 24.2 Anion Gap 10 BUN 11 Creatinine 0.73 Estimated GFR 78 L Random Glucose 111 H Calcium 8.8 Phosphorus 2.8 Lipase 128 Microbiology 05/24/18 12:15 Blood - Peripheral Aerobic Blood Culture - Preliminary No growth in 2 days 05/24/18 12:15 Blood - Peripheral Anaerobic Blood Culture - Preliminary No growth in 2 days 05/24/18 12:20 Blood - Peripheral Aerobic Blood Culture - Preliminary No growth in 2 days 05/24/18 12:20 Blood - Peripheral Anaerobic Blood Culture - Preliminary No growth in 2 days Assessment and Plan - Assessment (1) Hypoxia Code(s): R09.02 - Hypoxemia Status: Acute (2) HTN (hypertension) Code(s): I10 - Essential (primary) hypertension Status: Acute (3) Allergic rhinitis Code(s): J30.9 - Allergic rhinitis, unspecified Status: Acute (4) Community acquired pneumonia Code(s): J18.9 - Pneumonia, unspecified organism Status: Acute - Plan Mrs. Graff is a 77 yo F with: Community-acquired pneumonia/ Sepsis Impression: T102.8F w/ HR [address] of the chest showed: Bilateral subsegmental airspace disease and basilar consolidation most characteristic of an inflammatory process. -Continue empiric CAP treatment -IV ceftriaxone and azithromycin. -follow blood cultures -Negative x3 days -PRN nebs -incentive spirometry. -physical therapy. -Continue to monitor O2 saturations, vital signs -Will check home O2 walk test Allergic rhinitis -Will start Montelukast to use at home Headache CT head unremarkable. Likely s/t above process. -ibuprofen as needed. HTN On labetalol, HCTZ and ACEi as an outpt. -Continue [place] -continue labetalol. -Restart HCTZ -clonidine as needed. Renal insufficiency Impression: Mild Cr elevation to 1.1 on admission-> 0.73 today -Continue home medications -avoid nephrotoxins. Electrolytes Hypokalemia-> resolved -replete and monitor. PPx: SCDs Discharge Planning: Anticipate discharge home with O2/home health (4) Community acquired pneumonia Qualifiers: Laterality: right Lung location: lower lobe of lung Qualified Code(s): J18.1 - Lobar pneumonia, unspecified organism
[2018-05-27] MEDS ORDERED: hydroCHLOROthiazide 25 MG Tablet PO SCH (10:45)
--- NOTE | 2018-05-27 13:48 | P.DCO ---
- Physical Therapy Order: Evaluate and treat - Home Health Nursing Order: Oxygen administration education - Certification I have seen patient Angelica Graff on 05/27/18. My clinical findings support the need for the requested home health care services because: Patient has SOB I certify that my clinical findings support that this patient is homebound because: Unsteady gait/balance (hypoxia with ambulation)
[2018-05-27] MEDS: Azithromycin 250 MG Tablet PO SCH (14:37)
--- NOTE | 2018-05-27 15:29 | XR ---
EXAM DATE: 05/27/2018 3:19 PM EDT AGE/SEX: 77 years / Female INDICATIONS: Short of breath. CLINICAL DATA: This is the patient's subsequent encounter. Patient reports that signs and symptoms h ave been present for 2 days and indicates a pain score of 0/10. MEDICAL/SURGICAL HISTORY: . Hypertension. Hypercholesterolemia. . Hysterectomy. COMPARISON: [facility], CT CHEST W/O CONTRAST, 05/24/2018. . FINDINGS: There is patchy bilateral airspace disease greatest in the right upper lobe. There are small effusion s suspected. Cardiomegaly and mild interstitial prominence. CONCLUSION: Patchy bilateral infiltrates and nodularity identified. Electronically signed by: Yosi Quintanilla MD 05/27/2018 3:27 PM EDT
--- NOTE | 2018-06-01 20:32 | P.DS ---
Date of admission: 05/24/18 14:14 Primary care physician: No Primary Care Physician Attending physician on discharge: Chris Almonte Anticipated date of discharge: 05/27/18 Brief History from admission: The patient is a 77-year-old female with a past medical history of hypertension who is presenting to the hospital with headache and sweats and chills. The patient states she has been having fevers at home as well as alternating between sweats and chills. She has had severe symptoms over the past 3 days which have essentially rendered her bed bound. She has been coughing and when she coughs she experiences chest pain at times. She denies any mucus production. She says she had minor diarrhea on one of the days but that has resolved. She denies any shortness of breath. She does endorse chronic postnasal drip. She has been endorsing dizziness lately. She has a generalized sensation of weakness. She has been sweating a lot. Her step- daughter was at the bedside. Patient update on day of discharge: Mrs. Graff was afebrile with HTN overnight; SBP 160's-180's overnight. Patient reports that she is doing well overall but has noticed that she has had to catch her breath some. She has some mild cough but denies productive cough. No reported chest pain, abnormal urination, or abnormal bowel movements. 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 DS: Diagnosis - Discharge Diagnosis (1) Hypoxia Status: Acute (2) HTN (hypertension) Status: Acute (3) Allergic rhinitis Status: Acute (4) Community acquired pneumonia Status: Acute DS: Medications - Discharge Medications Prescriptions: amoxicillin-pot clavulanate [Augmentin] 1 tab PO BID #14 tab azithromycin 250 mg PO DAILY #5 tab hydrochlorothiazide 50 mg PO DAILY #60 tab montelukast [Singulair] 10 mg PO QPM #30 tab prednisone 40 mg PO DAILY #10 tab DS: Summary Hospital Course: Mrs. Graff is a 77-year-old female with PMH of hypertension who is presented to [facility] ED with headache, sweats, and chills x3 days and occasional chest pain. In ED, patient found to have T 102.[address] chest showed bilateral subsegmental airspace disease and basilar consolidation most characteristic of an inflammatory process. Patient started on empiric Rocephin and Azithromycin for pneumonia and blood cultures obtained (found to be negative ). Patient also given PRN Nebulizers, incentive spirometry, and O2 as needed. Patient's blood pressures were also treated during hospitalization with home medications. Home O2 walk test was performed; patient required O2 at discharge. Patient was discharged home 05/27 on Prednisone x5 days in addition to Augmentin and Azithromycin for continued treatment of pneumonia. Patient discharged with home health; planned f/u with PCP. - Time Spent with Patient Total time spent providing and/or coordinating discharge services: Less than 30 minutes - Quality: VTE Deep Vein Thrombosis/Pulmonary Embolism Present on Admission: No Exam Vital signs: Initial Documented Vital Signs Temperature 102.8 F H 05/24/18 11:44 Pulse Rate 102 H 05/24/18 11:44 Respiratory Rate 18 05/24/18 11:44 Blood Pressure 150/78 H 05/24/18 11:44 Pulse Oximetry 97 05/24/18 11:44 Last Documented Vital Signs Temperature 97.6 F 05/27/18 16:00 Pulse Rate 75 05/27/18 16:00 Respiratory Rate 19 05/27/18 16:00 Blood Pressure 142/73 H 05/27/18 18:24 Pulse Oximetry 95 05/27/18 16:00 Narrative: GENERAL: No acute distress. SKIN: No visible lesion EYES: EOM grossly I ENT: Mucous membranes pink and moist. CARDIOVASCULAR: Regular rate and rhythm; normal perfusion. No murmurs RESPIRATORY: CTAB; normal rate GASTROINTESTINAL: Abdomen soft, non-tender, nondistended MUSCULOSKELETAL: Grossly normal ROM and motor function. NEUROLOGICAL: Awake and alert. No obvious cranial nerve deficits. Grossly normal peripheral motor/sensory function PSYCHIATRIC: Appropriate mood and affect; insight and judgment normal. Results Procedures completed during hospitalization: None - Impressions ITS Impressions Chest CT 05/24/18 13:16 CONCLUSION: 1. Bilateral subsegmental airspace disease and basilar consolidation most characteristic of an inflammatory process. 2. Mildly prominent mediastinal lymph nodes. 3. 9 mm hypodensity within the right hepatic lobe most characteristic of a cyst. Head CT 05/24/18 13:22 CONCLUSION: 1. Negative for acute process. . Chest X-Ray 05/27/18 00:00 CONCLUSION: Patchy bilateral infiltrates and nodularity identified. Discharge Plan - Discharge Disposition Patient Disposition: Disch W/Home Health Service - Discharge Condition Condition: Stable - Discharge Order Discharge Orders: Discharge Order (Routine); Ordered 05/27/18 Ordered By: Chris Almonte - Discharge Details Anticipated Discharge Date: 05/27/18 - Physicians Team Primary Care Provider: Primary Care Estella Ariza Attending Provider: Chris Almonte
== END 2018-05-27 18:41 | disposition home health service (06) ==
LOC: PHED 11:41 → PHEDA 14:14 → PH3 14:55
PROVIDERS: ADMIT Family Medicine; ATTEND Family Medicine